=== PATIENT | male | born 1975 | race Hispanic/Latino ===

== ENCOUNTER 2018-07-20 07:55 | Emergency (ER) | payer OTHER ==
[2018-07-20 07:57] VITALS: RESP 17; BMI 26.7
--- NOTE | 2018-07-20 09:18 | ED PDOC ---
Lower Extremity Pain/Injury Time Seen by Provider: 07/20/18 08:40 Chief Complaint (Nursing): Lower Extremity Problem/Injury Chief Complaint (Provider): Lower Extremity Problem/Injury History Per: Patient History/Exam Limitations: no limitations Onset/Duration Of Symptoms: Hrs Current Symptoms Are (Timing): Still Present Additional Complaint(s): Bean Yang is a 43 year old male with no past medical history who is presenting to the ED for evaluation of right knee pain onset earlier today prior to arrival. Patient states that his knee buckled but he denies any pop ping/snapping sensation in the extremity. Patient offers no other medical complaints at this time. PMD: none provided Past Medical History Reviewed: Historical Data, Nursing Documentation, Vital Signs Vital Signs: Last Vital Signs Temp 97.5 F L 07/20/18 07:57 Pulse 83 07/20/18 07:57 Resp 17 07/20/18 07:57 BP 124/79 07/20/18 07:57 Pulse Ox 97 07/20/18 07:57 - Medical History PMH: No Chronic Diseases Denies: Chronic Kidney Disease - Surgical History Surgical History: Appendectomy - Family History Family History: States: Unknown Family Hx - Social History Current smoker - smoking cessation education provided: No Alcohol: Social Drugs: Denies - Home Medications Home Medications: Ambulatory Orders Medication Instructions Recorded Naproxen [Naprosyn] 500 mg PO BID PRN #20 tablet 07/20/18 - Allergies Allergies/Adverse Reactions: Allergies Allergy/AdvReac Type Severity Reaction Status Date / Time No Known Allergies Allergy Verified 07/20/18 08:02 Review of Systems ROS Statement: Except As Marked, All Systems Reviewed And Found Negative Musculoskeletal: Positive for: Leg Pain Physical Exam - Reviewed Nursing Documentation Reviewed: Yes Vital Signs Reviewed: Yes - Physical Exam Appears: Positive for: Well, Non-toxic, No Acute Distress Head Exam: Positive for: ATRAUMATIC, NORMAL INSPECTION, NORMOCEPHALIC Skin: Positive for: Normal Color, Warm Extremity: Positive for: Normal ROM, Other (no swelling or redness to right lower extremity or right knee). Negative for: Pedal Edema, Calf Tenderness, Deformity, Swelling Neurologic/Psych: Positive for: Alert, Oriented. Negative for: Motor/Sensory Deficits - ECG O2 Sat by Pulse Oximetry: 97 (RA) Pulse Ox Interpretation: Normal - Radiology X-Ray: Read By Radiologist X-Ray Interpretation: No Acute Disease Medical Decision Making Medical Decision Making: Time: 8:55 Plan: --X-Ray right knee --Toradol 60 mg IM Scribe Attestation: Documented by Lakeshia Angelo, acting as a scribe for Ramonita Schaefer MD. Provider Scribe Attestation: All medical record entries made by the Scribe were at my direction and personally dictated by me. I have reviewed the chart and agree that the record accurately reflects my personal performance of the history, physical exam, medical decision making, and the department course for this patient. I have also personally directed, reviewed, and agree with the discharge instructions and disposition. patient able to flex and extend knee with pain. there is no swelling, redness, ecchymosis, effusion on discharge. tenderness on ROM and palpation of the lateral knee. Disposition - Clinical Impression Clinical Impression: Knee injury - Patient ED Disposition Is Patient to be Admitted: No Doctor Will See Patient In The: Office Counseled Patient/Family Regarding: Diagnosis, Need For Followup, Rx Given - Disposition Referrals: Valentino Lo MD [Medical Doctor] - [facility] [Outside] Disposition: Routine/Home Disposition Time: 10:00 Condition: STABLE Prescriptions: Naproxen [Naprosyn] 500 mg PO BID PRN #20 tablet PRN Reason: Pain, Moderate (4-7) Instructions: Knee Pain, Active Range of Motion Exercises, Knees and Ankles Forms: [employer] ([place]), [facility] ED School/Work Excuse - POA Present On Arrival: None
--- NOTE | 2018-07-20 09:40 | RAD ---
Date of service: 07/20/2018 PROCEDURE: Right Knee Radiographs. HISTORY: acute pain COMPARISON: None. FINDINGS: BONES: Normal. No fracture. JOINTS: Normal. No osteoarthritis. JOINT EFFUSION: None. OTHER FINDINGS: None. IMPRESSION: Normal radiographs of the right knee.
[2018-07-20 11:12] VITALS: BP 120/78; PULSE 78; TEMP 98; O2SAT 98
== END 2018-07-20 11:12 | disposition home or self-care (01) ==
LOC: H.ER 07:55
DX: S89.91XA Unspecified injury of right lower leg, initial encounter (principal); X50.9XXA Other and unspecified overexertion or strenuous movements or postures, initial encounter; Y92.89 Other specified places as the place of occurrence of the external cause
CPT/HCPCS: 29530; 73562; 96372; 99285; J1885